=== PATIENT | male | born 1980 | race American Indian/Alaskan Native ===

== ENCOUNTER 2017-11-05 02:12 | Inpatient (IN) | payer SELFPAY ==
[2017-11-05] MEDS ORDERED: Sodium Chloride 0.9% 1,000 ML IV ONE (02:17)
[2017-11-05] MEDS ORDERED: Ondansetron 4 MG/2 ML SDV IVPUSH ONE (02:17)
[2017-11-05] MEDS ORDERED: Ketorolac 30 MG/ML SDV IVPUSH ONE (02:17)
--- NOTE | 2017-11-05 02:18 | EDM.PDOC ---
<Master Mcintosh - Last Filed: 11/05/17 06:48> ED HPI GENERAL MEDICAL PROBLEM - General Stated Complaint: STOMACH PAIN Time Seen by Provider: 11/05/17 02:17 Source of Information: Reports: Patient - History of Present Illness INITIAL COMMENTS - FREE TEXT/NARRATIVE: HISTORY AND PHYSICAL: History of present illness: [Patient presents with 5 out of 10 abdominal pain nonradiating left and low central below the umbilicus no fever nausea vomiting chills sweats said decreased bowel movements and discomfort over the last week he did have a bowel movement on arrival to the emergency room Denies chronic illness or disease no daily medications ] Review of systems: As per history of present illness and below otherwise all systems reviewed and negative. Past medical history: As per history of present illness and as reviewed below otherwise noncontributory. Surgical history: As per history of present illness and as reviewed below otherwise noncontributory. Social history: No reported history of drug or alcohol abuse. Family history: As per history of present illness and as reviewed below otherwise noncontributory. Physical exam: HEENT: Atraumatic, normocephalic, pupils reactive, negative for conjunctival pallor or scleral icterus, mucous membranes moist, throat clear, neck supple, nontender, trachea midline. Lungs: Clear to auscultation, breath sounds equal bilaterally, chest nontender. Heart: S1S2, regular, negative for clicks, rubs, or JVD. Abdomen: Soft, protuberant abdomen firm tender with guarding on the left lower quadrant as well as below the umbilicus mild tenderness right lower quadrant on deep palpation no guarding or rebound. Negative for masses or hepatosplenomegaly. Negative for costovertebral tenderness. Pelvis: Stable nontender. Genitourinary: Deferred. Rectal: Deferred. Extremities: Atraumatic, negative for cords or calf pain. Neurovascular unremarkable. Neuro: Awake, alert, oriented. Cranial nerves II through XII unremarkable. Cerebellum unremarkable. Motor and sensory unremarkable throughout. Exam nonfocal. Diagnostics: [CBC CMP UA lipase urine culture CT abdomen pelvis without contrast ] Therapeutics: [1 L normal saline bolus Zofran 8 mg IV Toradol 30 mg IV Reglan 10 mg IV Cipro 400 mg IV Flagyl 500 mg IV ]Dr. Murray consulted, I have spoken with hospitalist senior financial consultant whe are tentatively expecting some possible discharges which would open availability for the patient Patient will have to be signed out for final disposition pending surgical evaluation and bed status Impression: [ abdominal pain Diverticulitis Likely. Diverticular abscess 2 x 1 cm ] Definitive disposition and diagnosis as appropriate pending reevaluation and review of above. Lower abdomen Pain Score (Numeric/FACES): 7 - Related Data Allergies Allergy/AdvReac Type Severity Reaction Status Date / Time No Known Allergies Allergy Verified 11/05/17 02:25 Home Meds: Home Meds . [No Known Home Meds] 11/05/17 [History] Course - Vital Signs Last Recorded V/S: Last Vital Signs Temp 97.5 F 11/05/17 09:48 Pulse 78 11/05/17 09:48 Resp 16 11/05/17 09:48 BP 114/68 11/05/17 09:48 Pulse Ox 96 11/05/17 09:48 - Orders/Labs/Meds Orders: Active Orders 24 hr Category Date Time Status Admission Status [Patient Status] [ADT] Stat ADT 11/05/17 10:14 Active Notify Provider Consults [RC] ASDIRECTED Care 11/05/17 06:43 Active Consult to Physician [CONS] Stat Cons 11/05/17 06:41 Active Abdomen 2V AP Flat Upright [CR] Stat Exams 11/05/17 03:31 Stop Req Abdomen Pelvis wo Cont [CT] Stat Exams 11/05/17 03:34 Taken CULTURE URINE [RM] Stat Lab 11/05/17 02:20 Received UA W/MICROSCOPIC [URIN] Stat Lab 11/05/17 02:20 Ordered Sodium Chloride 0.9% [Normal Saline] 1,000 ml Med 11/05/17 04:45 Active IV STAT Medication Orders Sodium Chloride (Normal Saline) 1,000 mls @ 125 mls/hr IV STAT JENNIFER Last Admin: 11/05/17 05:18 Dose: 125 mls/hr Labs: Laboratory Tests 11/05/17 11/05/17 11/05/17 Range/Units 02:20 02:50 02:50 WBC 8.28 (4.0-11.0) K/uL RBC 5.18 (4.50-5.90) M/uL Hgb 14.7 (13.0-17.0) g/dL Hct 42.4 (38.0-50.0) % MCV 81.9 (80.0-98.0) fL MCH 28.4 (27.0-32.0) pg MCHC 34.7 (31.0-37.0) g/dL RDW Std Deviation 38.9 (28.0-62.0) fl RDW Coeff of Heavenly 13 (11.0-15.0) % Plt Count 286 (150-400) K/uL MPV 9.30 (7.40-12.00) fL Neut % (Auto) 66.7 (48.0-80.0) % Lymph % (Auto) 21.6 (16.0-40.0) % [place] % (Auto) 8.6 (0.0-15.0) % Eos % (Auto) 2.7 (0.0-7.0) % Baso % (Auto) 0.4 (0.0-1.5) % Neut # (Auto) 5.5 (1.4-5.7) K/uL Lymph # (Auto) 1.8 (0.6-2.4) K/uL [place] # (Auto) 0.7 (0.0-0.8) K/uL Eos # (Auto) 0.2 (0.0-0.7) K/uL Baso # (Auto) 0.0 (0.0-0.1) K/uL Nucleated RBC % 0.0 /100WBC Nucleated RBCs # 0 K/uL Sodium 141 (136-148) mmol/L Potassium 3.7 (3.5-5.1) mmol/L Chloride 105 (98-107) mmol/L Carbon Dioxide 28.0 (21.0-32.0) mmol/L BUN 14 (7.0-18.0) mg/dL Creatinine 0.9 (0.8-1.3) mg/dL Est Cr Clr Drug Dosing 95.05 mL/min Estimated GFR (MDRD) > 60.0 ml/min Glucose 105 (74-106) mg/dL Calcium 8.8 (8.5-10.1) mg/dL Total Bilirubin 0.3 (0.2-1.0) mg/dL AST 20 (15-37) IU/L ALT 47 (14-63) IU/L Alkaline Phosphatase 124 H (46-116) U/L Total Protein 7.7 (6.4-8.2) g/dL Albumin 3.3 L (3.4-5.0) g/dL Globulin 4.4 H (2.0-3.5) g/dL Albumin/Globulin Ratio 0.8 L (1.3-2.8) Lipase 124 (73-393) U/L Urine Color YELLOW Urine Appearance SLT CLOUDY Urine pH 7.5 (5.0-8.0) Ur Specific [place] 1.020 (1.001-1.035) Urine Protein NEGATIVE (NEGATIVE) mg/dL Urine Glucose (UA) NEGATIVE (NEGATIVE) mg/dL Urine Ketones NEGATIVE (NEGATIVE) mg/dL Urine Occult Blood SMALL H (NEGATIVE) Urine Nitrite NEGATIVE (NEGATIVE) Urine Bilirubin NEGATIVE (NEGATIVE) Urine Urobilinogen 0.2 (<2.0) EU/dL Ur Leukocyte Esterase NEGATIVE (NEGATIVE) Urine RBC 0-2 (0-2/HPF) Urine WBC 0-1 (0-5/HPF) Ur Epithelial Cells RARE (NONE-FEW) Amorphous Sediment MANY (NEGATIVE) Urine Bacteria FEW (NEGATIVE) Meds: Medications Generic Name Dose Route Start Last Admin Trade Name [place] PRN Reason Stop Dose Admin Sodium Chloride 1,000 mls @ 125 mls/hr 11/05/17 04:45 11/05/17 05:18 Normal Saline IV 125 mls/hr STAT JENNIFER Administration Discontinued Medications Generic Name Dose Route Start Last Admin Trade Name Charlotte PRN Reason Stop Dose Admin Sodium Chloride 1,000 mls @ 999 mls/hr 11/05/17 02:17 11/05/17 02:55 Normal Saline IV 11/05/17 03:17 999 mls/hr STAT ONE Administration Metronidazole 500 mg/ Premix 100 mls @ 100 mls/hr 11/05/17 04:11 11/05/17 04: 14 IV 11/05/17 05:10 100 mls/hr ONETIME ONE Administration Ciprofloxacin/Dextrose 400 mg/ 200 mls @ 200 mls/hr 11/05/17 04:58 11/05/17 05:18 Premix IV 11/05/17 05:57 200 mls/hr NOW STA Administration Ketorolac Tromethamine 30 mg 11/05/17 02:17 11/05/17 02:56 Toradol IVPUSH 05/19/18 02:18 30 mg ONETIME ONE Administration Metoclopramide HCl 10 mg 11/05/17 04:02 11/05/17 04:09 Reglan IV 11/05/17 04:03 10 mg ONETIME ONE Administration Ondansetron HCl 8 mg 11/05/17 02:17 11/05/17 02:56 Zofran IVPUSH 11/05/17 02:18 8 mg ONETIME ONE Administration Sumatriptan Succinate 50 mg 11/05/17 09:42 11/05/17 09:55 Imitrex PO 11/05/17 09:43 50 mg ONETIME ONE Administration Departure - Departure Disposition: Admitted As Inpatient 66 Clinical Impression: Diverticulitis - Discharge Information Referrals: PCP,None [Primary Care Provider] - - My Orders Last 24 Hours: My Active Orders 11/05/17 10:14 Admission Status [Patient Status] [ADT] Stat - Assessment/Plan Last 24 Hours: My Active Orders 11/05/17 10:14 Admission Status [Patient Status] [ADT] Stat <Travis Lucas - Last Filed: 11/05/17 10:19> ED HPI GENERAL MEDICAL PROBLEM - General Source of Information: Reports: Patient - History of Present Illness INITIAL COMMENTS - FREE TEXT/NARRATIVE: Dr. Lucas taking over care for patient at 07 100. I have been advised of patient's pertinent findings in history as well as labs and imaging from Dr. White. I personally examined patient and reviewed all labs, imaging, and history and him assuming care. CT abd/pelvis did show mild to moderate wall thickening present in the sigmoid with surrounding inflammatory and severe diverticulosis most likely due to acute diverticulitis. In addition there was a fluid density structure seen along the inferior margin of the inflamed segment of the cystic colon measuring 2 x 1 cm, most likely due to a small rahel-diverticular abscess. 07 30-patient seen by Dr. Mruray, surgery who physical exam patient and reviewed CT findings. Abscess mentioned on CT is very small and most likely not surgical. Patient could be admitted for IV antibiotics and he will consult. Possible consult with radiology if needed in the future for drain placement. 0943- Patient complaining of migraine given 50 mg Sumatriptan po x1 1015- Dr. Mantilla, hospitalist, consulted on patient for diverticulitis. She is aware patient and accepts patient as inpatient to the hospital for further treatment. ED ROS ENT - Review of Systems Review Of Systems: See Below ED EXAM, ENT - Physical Exam Exam: See Below Departure - Departure Time of Disposition: 10:18 Condition: Good - My Orders Last 24 Hours: My Active Orders 11/05/17 10:14 Admission Status [Patient Status] [ADT] Stat - Assessment/Plan Last 24 Hours: My Active Orders 11/05/17 10:14 Admission Status [Patient Status] [ADT] Stat
[2017-11-05 03:18] LABS: CHLORIDE,CL 105 mmol/L (98-107); SODIUM,NA 141 mmol/L (136-148)
[2017-11-05] MEDS ORDERED: Metoclopramide 10 MG/2 ML SDV IV ONE (04:02)
[2017-11-05] MEDS ORDERED: metroNIDAZOLE/Normal Saline 500 MG in Premix Bag 1 BAG IV ONE (04:11)
[2017-11-05] MEDS ORDERED: Sodium Chloride 0.9% 1,000 ML IV SCH (04:45)
[2017-11-05] MEDS ORDERED: Ciprofloxacin in D5W 400 MG in Premix Bag 1 BAG IV STA ×2 (04:58)
--- NOTE | 2017-11-05 08:13 | PCM.CONS ---
H&P History of Present Illness - General Date of Service: 11/05/17 Admit Problem/Dx: Acute diverticulitis with small pericolonic fluid collection Source of Information: Patient History Limitations: Reports: No Limitations - History of Present Illness Initial Comments - Free Text/Narative: Patient is a 37-year-old gentleman who presented the emergency room earlier this morning complaining of abdominal pain. He relates the pain started last week and was moderately significant during the week. It got worse this morning , so he presented to the emergency room. CT scan revealed diverticulitis with a 1 x 2 cm pericolonic fluid collection. Patient had previously not carry a diagnosis of diverticulosis. He denies any fever or chills. No nausea or vomiting. Has had some trouble with constipation. This past week. Symptom Onset Date: 10/30/17 Duration of Symptoms: Reports: Getting Worse, Heavy Location: Reports: Abdomen Quality: Reports: Ache, Burning, Pressure Severity: Moderate Improves with: Reports: Rest Worsens with: Reports: Movement Context: Reports: Sick Contact Associated Symptoms: Reports: No Other Symptoms Lower abdomen Pain Score (Numeric/FACES): 7 - Related Data Allergies/Adverse Reactions: Allergies Allergy/AdvReac Type Severity Reaction Status Date / Time No Known Allergies Allergy Verified 11/05/17 02:25 Home Medications: Home Meds . [No Known Home Meds] 11/05/17 [History] Past Medical History - Past Health History Medical/Surgical History: Denies Medical/Surgical History - Infectious Disease History Infectious Disease History: Reports: Chicken Pox - Past Surgical History GI Surgical History: Reports: Cholecystectomy Musculoskeletal Surgical History: Reports: Other (See Below) Other Musculoskeletal Surgeries/Procedures:: thumb surgery Social & Family History - Tobacco Use Smoking Status *Q: Former Smoker Used Tobacco, but Quit: Yes Month/Year Tobacco Last Used: 2007 - Caffeine Use Caffeine Use: Reports: Coffee - Recreational Drug Use Recreational Drug Use: Yes Drug Use in Last 12 Months: No H&P Review of Systems - Review of Systems: Review Of Systems: See Below General: Reports: Fever. Denies: Chills, Malaise, Weakness HEENT: Reports: No Symptoms Pulmonary: Denies: Shortness of Breath, Wheezing Cardiovascular: Denies: Chest Pain, Palpitations Gastrointestinal: Reports: Abdominal Pain, Constipation, Distension, Flatus. Denies: Anorexia, Black Stool, Bloody Stool, Diarrhea, Hematochezia, Melena, Nausea, Stool Incontinence, Vomiting Genitourinary: Denies: Dysuria, Frequency, Burning Musculoskeletal: Reports: No Symptoms Skin: Denies: Cyanosis, Jaundice, Mottled, Pallor Psychiatric: Denies: Confusion, Depression Neurological: Reports: No Symptoms Hematologic/Lymphatic: Reports: No Symptoms Immunologic: Reports: No Symptoms Exam - Exam Exam: See Below - Vital Signs Vital Signs: Last Vital Signs Temp 97.8 F 11/05/17 06:37 Pulse 71 11/05/17 06:37 Resp 16 11/05/17 06:37 BP 102/57 L 11/05/17 06:37 Pulse Ox 98 11/05/17 06:37 Weight: 131 lb 13.383 oz - Exam General: Alert, Oriented, Cooperative, Mild Distress HEENT: Conjunctiva Clear, EACs Clear, Pupils Equal, Pupils Reactive. No: Scleral Icterus Neck: Supple, Trachea Midline Lungs: Clear to Auscultation, Normal Respiratory Effort Cardiovascular: Regular Rate, Regular Rhythm GI/Abdominal Exam: Normal Bowel Sounds, Soft, Non-Tender, No Organomegaly, Distended (Mild). No: Guarding, Rigid, Rebound (Male) Exam: No Hernia Rectal (Males) Exam: Deferred Back Exam: Normal Inspection Extremities: Normal Inspection, Normal Range of Motion, Normal Capillary Refill Peripheral Pulses: 4+: Posterior Tibial (L), Posterior Tibial (R), Dorsalis Pedis (L), Dorsalis Pedis (R) Skin: Warm, Dry, Intact Neurological: Cranial Nerves Intact, Reflexes Equal Bilateral Neuro Extensive - Mental Status: Alert, Oriented x3, Normal Mood/Affect, Normal Cognition Psychiatric: Alert, Normal Affect, Normal Mood - Patient Data Lab Results Last 24 hrs: Laboratory Results - last 24 hr 11/05/17 11/05/17 11/05/17 Range/Units 02:20 02:50 02:50 WBC 8.28 (4.0-11.0) K/uL RBC 5.18 (4.50-5.90) M/uL Hgb 14.7 (13.0-17.0) g/dL Hct 42.4 (38.0-50.0) % MCV 81.9 (80.0-98.0) fL MCH 28.4 (27.0-32.0) pg MCHC 34.7 (31.0-37.0) g/dL RDW Std Deviation 38.9 (28.0-62.0) fl RDW Coeff of Heavenly 13 (11.0-15.0) % Plt Count 286 (150-400) K/uL MPV 9.30 (7.40-12.00) fL Neut % (Auto) 66.7 (48.0-80.0) % Lymph % (Auto) 21.6 (16.0-40.0) % [place] % (Auto) 8.6 (0.0-15.0) % Eos % (Auto) 2.7 (0.0-7.0) % Baso % (Auto) 0.4 (0.0-1.5) % Neut # (Auto) 5.5 (1.4-5.7) K/uL Lymph # (Auto) 1.8 (0.6-2.4) K/uL [place] # (Auto) 0.7 (0.0-0.8) K/uL Eos # (Auto) 0.2 (0.0-0.7) K/uL Baso # (Auto) 0.0 (0.0-0.1) K/uL Nucleated RBC % 0.0 /100WBC Nucleated RBCs # 0 K/uL Sodium 141 (136-148) mmol/L Potassium 3.7 (3.5-5.1) mmol/L Chloride 105 (98-107) mmol/L Carbon Dioxide 28.0 (21.0-32.0) mmol/L BUN 14 (7.0-18.0) mg/dL Creatinine 0.9 (0.8-1.3) mg/dL Est Cr Clr Drug Dosing 95.05 mL/min Estimated GFR (MDRD) > 60.0 ml/min Glucose 105 (74-106) mg/dL Calcium 8.8 (8.5-10.1) mg/dL Total Bilirubin 0.3 (0.2-1.0) mg/dL AST 20 (15-37) IU/L ALT 47 (14-63) IU/L Alkaline Phosphatase 124 H (46-116) U/L Total Protein 7.7 (6.4-8.2) g/dL Albumin 3.3 L (3.4-5.0) g/dL Globulin 4.4 H (2.0-3.5) g/dL Albumin/Globulin Ratio 0.8 L (1.3-2.8) Lipase 124 (73-393) U/L Urine Color YELLOW Urine Appearance SLT CLOUDY Urine pH 7.5 (5.0-8.0) Ur Specific [place] 1.020 (1.001-1.035) Urine Protein NEGATIVE (NEGATIVE) mg/dL Urine Glucose (UA) NEGATIVE (NEGATIVE) mg/dL Urine Ketones NEGATIVE (NEGATIVE) mg/dL Urine Occult Blood SMALL H (NEGATIVE) Urine Nitrite NEGATIVE (NEGATIVE) Urine Bilirubin NEGATIVE (NEGATIVE) Urine Urobilinogen 0.2 (<2.0) EU/dL Ur Leukocyte Esterase NEGATIVE (NEGATIVE) Urine RBC 0-2 (0-2/HPF) Urine WBC 0-1 (0-5/HPF) Ur Epithelial Cells RARE (NONE-FEW) Amorphous Sediment MANY (NEGATIVE) Urine Bacteria FEW (NEGATIVE) Result Diagrams: 11/05/17 02:50 11/05/17 02:50 Imaging Impressions Last 24 hrs: CT scan is read as showing a 1 x 2 cm pericolonic fluid collection in the area of diverticulitis. No large abscess was noted. No pneumoperitoneum. Consult PN Assessment/Plan (1) Diverticulitis large intestine SNOMED Code(s): 7157709 Code(s): K57.32 - DVTRCLI OF LG INT W/O PERFORATION OR ABSCESS W/O BLEEDING Priority: High Current Visit: Yes Qualifiers: Diverticulitis bleeding: without bleeding Problem List Initiated/Reviewed/Updated: Yes Plan: RECOMMENDATIONS: I think the patient would benefit from 2-3 days of parenteral antibiotic therapy followed by 7-10 day course of oral antibiotics on an outpatient basis. Would allow a clear liquid diet as he has no leukocytosis. I have also recommended to him that he have a colonoscopy later this year. I will continue to follow him.
[2017-11-05] MEDS ORDERED: SUMAtriptan 50 MG Tab PO ONE (09:42)
[2017-11-05] MEDS ORDERED: Morphine 10 MG/ML Syringe IVPUSH PRN (12:20)
[2017-11-05] MEDS ORDERED: Sodium Chloride 0.9% 2.5 ML Syringe FLUSH PRN (12:20)
[2017-11-05] MEDS ORDERED: Ondansetron 4 MG/2 ML SDV IVPUSH PRN (12:20)
[2017-11-05] MEDS ORDERED: Sodium Chloride 0.9% 10 ML Syringe FLUSH PRN (12:20)
[2017-11-05] MEDS: Enoxaparin 40 MG/0.4 ML Syringe SUBCUT SCH (13:16)
[2017-11-05] MEDS ORDERED: Acetaminophen/oxyCODONE 325-5 MG Tab PO PRN (13:54)
[2017-11-05] MEDS ORDERED: LORazepam 2 MG/ML SDV IVPUSH ONE (13:57)
[2017-11-05] MEDS ORDERED: Metoclopramide 10 MG/2 ML SDV IVPUSH PRN (13:58)
[2017-11-05] MEDS ORDERED: HYDROmorphone 2 MG/ML SDV IVPUSH ONE (14:11)
[2017-11-05] MEDS ORDERED: Aspirin 325 MG Tab PO ONE (14:12)
[2017-11-05] MEDS ORDERED: Acetaminophen 325 MG Tab PO ONE (14:24)
[2017-11-05] MEDS ORDERED: CAFFEINE CITRATE 20 MG/ML PO ONE (14:30)
[2017-11-05] MEDS ORDERED: CAFFEINE CITRATE 20 MG/ML ONE (14:30)
[2017-11-05] MEDS ORDERED: CAFFEINE CITRATE 20 MG/ML IV ONE (14:30)
[2017-11-05] MEDS: Lactated Ringers 1,000 ML IV SCH (15:37)
--- NOTE | 2017-11-05 15:49 | PCM.HP ---
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 He states that this abdominal pain started about 1 week ago and he had subjective feeling of fever and broke up in sweats 1 week ago. The pain improved in the subsequent days but it came back at the end of the week and last night woke him up from sleep and he drove to [place]. Patient says that 1 y ago he had pain in the LLQ again and it was short , for about 1 day and subsided on its own. Has an uncle and a aunt that of colon cancer in the 60' and 50', respective.Currently he has severe headache frontal , he states it is the worst headache of his life. He suffers occasionally of migraine headache and treats them with Excedrin Onset of Symptoms: Reports: Today Location: Reports: Abdomen Quality: Reports: Sharp Lower abdomen Pain Score (Numeric/FACES): 7 Headache Pain Score (Numeric/FACES): 8 - Related Data Allergies/Adverse Reactions: Allergies Allergy/AdvReac Type Severity Reaction Status Date / Time No Known Allergies Allergy Verified 11/05/17 02:25 Home Medications: Home Meds . [No Known Home Meds] 11/05/17 [History] Past Medical History - Past Health History Medical/Surgical History: Denies Medical/Surgical History - Infectious Disease History Infectious Disease History: Reports: Chicken Pox - Past Surgical History GI Surgical History: Reports: Cholecystectomy Musculoskeletal Surgical History: Reports: Other (See Below) Other Musculoskeletal Surgeries/Procedures:: thumb surgery Social & Family History - Tobacco Use Smoking Status *Q: Former Smoker Used Tobacco, but Quit: Yes Month/Year Tobacco Last Used: 2007 - Caffeine Use Caffeine Use: Reports: Coffee - Recreational Drug Use Recreational Drug Use: Yes Drug Use in Last 12 Months: No H&P Review of Systems - Review of Systems: Review Of Systems: See Below General: Reports: No Symptoms HEENT: Reports: No Symptoms Pulmonary: Reports: No Symptoms Cardiovascular: Reports: No Symptoms Gastrointestinal: Reports: Abdominal Pain (LLQ) Genitourinary: Reports: No Symptoms Musculoskeletal: Reports: No Symptoms Skin: Reports: No Symptoms Psychiatric: Reports: No Symptoms Neurological: Reports: Headache Hematologic/Lymphatic: Reports: No Symptoms Immunologic: Reports: No Symptoms Exam - Exam Exam: See Below - Vital Signs Vital Signs: Last Vital Signs Temp 97.5 F 11/05/17 09:48 Pulse 78 11/05/17 09:48 Resp 16 11/05/17 09:48 BP 114/68 11/05/17 09:48 Pulse Ox 96 11/05/17 09:48 Weight: 131 lb 13.383 oz - Exam Quality Assessment: Supplemental Oxygen General: Alert, Oriented HEENT: Conjunctiva Clear, EACs Clear, EOMI, Hearing Intact Neck: Supple, Trachea Midline Lungs: Clear to Auscultation, Normal Respiratory Effort Cardiovascular: Regular Rate, Regular Rhythm, Normal S1, Normal S2 GI/Abdominal Exam: Normal Bowel Sounds, Soft, Tender (LLQ). No: Guarding, Rebound Back Exam: Normal Inspection Extremities: Normal Inspection Skin: Warm, Dry Neurological: Normal Speech Neuro Extensive - Mental Status: Alert, Oriented x3, Normal Mood/Affect Neuro Extensive - Motor, Sensory, Reflexes: CN II-XII Intact Psychiatric: Alert, Normal Affect - Patient Data Lab Results Last 24 hrs: Laboratory Results - last 24 hr 11/05/17 11/05/17 11/05/17 Range/Units 02:20 02:50 02:50 WBC 8.28 (4.0-11.0) K/uL RBC 5.18 (4.50-5.90) M/uL Hgb 14.7 (13.0-17.0) g/dL Hct 42.4 (38.0-50.0) % MCV 81.9 (80.0-98.0) fL MCH 28.4 (27.0-32.0) pg MCHC 34.7 (31.0-37.0) g/dL RDW Std Deviation 38.9 (28.0-62.0) fl RDW Coeff of Heavenly 13 (11.0-15.0) % Plt Count 286 (150-400) K/uL MPV 9.30 (7.40-12.00) fL Neut % (Auto) 66.7 (48.0-80.0) % Lymph % (Auto) 21.6 (16.0-40.0) % [place] % (Auto) 8.6 (0.0-15.0) % Eos % (Auto) 2.7 (0.0-7.0) % Baso % (Auto) 0.4 (0.0-1.5) % Neut # (Auto) 5.5 (1.4-5.7) K/uL Lymph # (Auto) 1.8 (0.6-2.4) K/uL [place] # (Auto) 0.7 (0.0-0.8) K/uL Eos # (Auto) 0.2 (0.0-0.7) K/uL Baso # (Auto) 0.0 (0.0-0.1) K/uL Nucleated RBC % 0.0 /100WBC Nucleated RBCs # 0 K/uL Sodium 141 (136-148) mmol/L Potassium 3.7 (3.5-5.1) mmol/L Chloride 105 (98-107) mmol/L Carbon Dioxide 28.0 (21.0-32.0) mmol/L BUN 14 (7.0-18.0) mg/dL Creatinine 0.9 (0.8-1.3) mg/dL Est Cr Clr Drug Dosing 95.05 mL/min Estimated GFR (MDRD) > 60.0 ml/min Glucose 105 (74-106) mg/dL Calcium 8.8 (8.5-10.1) mg/dL Total Bilirubin 0.3 (0.2-1.0) mg/dL AST 20 (15-37) IU/L ALT 47 (14-63) IU/L Alkaline Phosphatase 124 H (46-116) U/L Total Protein 7.7 (6.4-8.2) g/dL Albumin 3.3 L (3.4-5.0) g/dL Globulin 4.4 H (2.0-3.5) g/dL Albumin/Globulin Ratio 0.8 L (1.3-2.8) Lipase 124 (73-393) U/L Urine Color YELLOW Urine Appearance SLT CLOUDY Urine pH 7.5 (5.0-8.0) Ur Specific [employer] [place] 1.020 (1.001-1.035) Urine Protein NEGATIVE (NEGATIVE) mg/dL Urine Glucose (UA) NEGATIVE (NEGATIVE) mg/dL Urine Ketones NEGATIVE (NEGATIVE) mg/dL Urine Occult Blood SMALL H (NEGATIVE) Urine Nitrite NEGATIVE (NEGATIVE) Urine Bilirubin NEGATIVE (NEGATIVE) Urine Urobilinogen 0.2 (<2.0) EU/dL Ur Leukocyte Esterase NEGATIVE (NEGATIVE) Urine RBC 0-2 (0-2/HPF) Urine WBC 0-1 (0-5/HPF) Ur Epithelial Cells RARE (NONE-FEW) Amorphous Sediment MANY (NEGATIVE) Urine Bacteria FEW (NEGATIVE) Result Diagrams: 11/05/17 02:50 11/05/17 02:50 - Problem List (1) Diverticulitis SNOMED Code(s): 067891555 ICD Code: K57.92 - DVTRCLI OF INTEST, PART UNSP, W/O PERF OR ABSCESS W/O BLEED Status: Acute Current Visit: Yes (2) Migraine headache without aura SNOMED Code(s): 59233764 ICD Code: G43.009 - MIGRAINE W/O AURA, NOT INTRACTABLE, W/O STATUS MIGRAINOSUS Status: Acute Current Visit: Yes Qualifiers: Intractability: not intractable Problem List Initiated/Reviewed/Updated: Yes Orders Last 24hrs: Active Orders 24 hr Category Date Time Status Admission Status [Patient Status] [ADT] Stat ADT 11/05/17 10:14 Active Notify Provider Consults [RC] ASDIRECTED Care 11/05/17 06:43 Active Oxygen Therapy [RC] PRN Care 11/05/17 12:20 Active Pulse Oximetry [RC] PRN Care 11/05/17 12:21 Active Up ad Kady [RC] ASDIRECTED Care 11/05/17 12:20 Active VTE/DVT Education [RC] PER UNIT ROUTINE Care 11/05/17 12:20 Active Vital Signs [RC] Q4H Care 11/05/17 12:20 Active Consult to Physician [CONS] Stat Cons 11/05/17 06:41 Active Clear Liquid Diet [DIET] Diet 11/05/17 Dinner Active Abdomen Pelvis wo Cont [CT] Stat Exams 11/05/17 03:34 Taken CBC WITH AUTO DIFF [HEME] AM Lab 11/06/17 05:11 Ordered CBC WITH AUTO DIFF [HEME] AM Lab 11/07/17 05:11 Ordered CBC WITH AUTO DIFF [HEME] AM Lab 11/08/17 05:11 Ordered CBC WITH AUTO DIFF [HEME] AM Lab 11/09/17 05:11 Ordered CBC WITH AUTO DIFF [HEME] AM Lab 11/10/17 05:11 Ordered COMPREHENSIVE METABOLIC PN,CMP [CHEM] AM Lab 11/06/17 05:11 Ordered COMPREHENSIVE METABOLIC PN,CMP [CHEM] AM Lab 11/07/17 05:11 Ordered COMPREHENSIVE METABOLIC PN,CMP [CHEM] AM Lab 11/08/17 05:11 Ordered COMPREHENSIVE METABOLIC PN,CMP [CHEM] AM Lab 11/09/17 05:11 Ordered COMPREHENSIVE METABOLIC PN,CMP [CHEM] AM Lab 11/10/17 05:11 Ordered CULTURE URINE [RM] Stat Lab 11/05/17 02:20 Received MAGNESIUM [CHEM] AM Lab 11/06/17 05:11 Ordered MAGNESIUM [CHEM] AM Lab 11/07/17 05:11 Ordered MAGNESIUM [CHEM] AM Lab 11/08/17 05:11 Ordered MAGNESIUM [CHEM] AM Lab 11/09/17 05:11 Ordered PHOSPHORUS [CHEM] AM Lab 11/06/17 05:11 Ordered PHOSPHORUS [CHEM] AM Lab 11/07/17 05:11 Ordered PHOSPHORUS [CHEM] AM Lab 11/08/17 05:11 Ordered PHOSPHORUS [CHEM] AM Lab 11/09/17 05:11 Ordered UA W/MICROSCOPIC [URIN] Stat Lab 11/05/17 02:20 Ordered Acetaminophen/oxyCODONE [Percocet 325-5 MG] Med 11/05/17 13:54 Active 1 tab PO Q6H PRN Ciprofloxacin in D5W [Cipro in D5W 400 MG/200 ML] 400 Med 11/05/17 21:00 Active mg Premix Bag 1 bag IV Q12H Enoxaparin [Lovenox] Med 11/05/17 12:30 Active 40 mg SUBCUT Q24H Lactated Ringers [Ringers, Lactated] 1,000 ml Med 11/05/17 12:30 Active IV ASDIRECTED Metoclopramide [Reglan] Med 11/05/17 13:58 Active 10 mg IVPUSH Q4H PRN Morphine Med 11/05/17 12:20 Active 2 mg IVPUSH Q2H PRN Ondansetron [Zofran] Med 11/05/17 12:20 Active 4 mg IVPUSH Q4H PRN Sodium Chloride 0.9% [Normal Saline] 1,000 ml Med 11/05/17 04:45 Active IV STAT Sodium Chloride 0.9% [Saline Flush] Med 11/05/17 12:20 Active 10 ml FLUSH ASDIRECTED PRN Sodium Chloride 0.9% [Saline Flush] Med 11/05/17 12:20 Active 2.5 ml FLUSH ASDIRECTED PRN metroNIDAZOLE/Normal Saline [Flagyl 500 MG in NS 100 ML Med 11/05/17 18:00 Active ] 500 mg Premix Bag 1 bag IV QID Peripheral IV Insertion Adult [OM.PC] Routine Oth 11/05/17 12:20 Ordered Saline Lock Insert [OM.PC] Routine Oth 11/05/17 12:20 Ordered Sequential Compression Device [OM.PC] Per Unit Routine Oth 11/05/17 12:21 Ordered Resuscitation Status Routine Resus Stat 11/05/17 12:20 Ordered Medication Orders Enoxaparin Sodium (Lovenox) 40 mg SUBCUT Q24H [facility] Last Admin: 11/05/17 13:16 Dose: 40 mg Sodium Chloride (Normal Saline) 1,000 mls @ 125 mls/hr IV STAT [facility] Last Admin: 11/05/17 05:18 Dose: 125 mls/hr Lactated Ringer's (Ringers, Lactated) 1,000 mls @ 125 mls/hr IV ASDIRECTED [facility] Metronidazole 500 mg/ Premix 100 mls @ 100 mls/hr IV QID [facility] Ciprofloxacin/Dextrose 400 mg/ (Premix) 200 mls @ 200 mls/hr IV Q12H [facility] Metoclopramide HCl (Reglan) 10 mg IVPUSH Q4H PRN PRN Reason: n and vomiting Morphine Sulfate (Morphine) 2 mg IVPUSH Q2H PRN PRN Reason: Pain (severe 7-10) Stop: 11/06/17 12:22 Ondansetron HCl (Zofran) 4 mg IVPUSH Q4H PRN PRN Reason: Nausea Oxycodone/Acetaminophen (Percocet 325-5 Mg) 1 tab PO Q6H PRN PRN Reason: Pain Sodium Chloride (Saline Flush) 10 ml FLUSH ASDIRECTED PRN PRN Reason: Keep Vein Open Sodium Chloride (Saline Flush) 2.5 ml FLUSH ASDIRECTED PRN PRN Reason: Keep Vein Open Assessment/Plan Comment:: ct scan of the abdomen showed colon diverticulitis with small pericolonic fluid collection. Assessment and plan 1) diverticulitis with small pericolonic fluid collection- will admit patient to med surge and will continue patient with ciprofloxacin 400 mg iv q12 h and metronidazole 500 mg iv q 8h, f/up blood culture. Surgery consult was called in ER and recommended medical management . 2)Migraine headache - will give patient tylenol 650 mg po , aspirin 325 mg po one dose and caffeine 300 mg, as the pharmacy did not have exedrin. will reevaluate. DVT prof: heparing sq Gi prof - protonix iv
[2017-11-05] MEDS: metroNIDAZOLE/Normal Saline 500 MG in Premix Bag 1 BAG IV SCH (17:36)
[2017-11-05] MEDS: Ciprofloxacin in D5W 400 MG in Premix Bag 1 BAG IV SCH ×2 (22:05)
[2017-11-06] MEDS: metroNIDAZOLE/Normal Saline 500 MG in Premix Bag 1 BAG IV SCH ×3 (00:03→12:32)
[2017-11-06] MEDS: Lactated Ringers 1,000 ML IV SCH (02:15)
[2017-11-06] MEDS ORDERED: Aspirin 325 MG Tab PO ONE (05:07)
[2017-11-06] MEDS ORDERED: CAFFEINE CITRATE 20 MG/ML PO ONE (05:09)
[2017-11-06] MEDS ORDERED: Acetaminophen 325 MG Tab PO ONE (05:10)
[2017-11-06 06:46] LABS: CHLORIDE,CL 110 mmol/L (98-107); SODIUM,NA 143 mmol/L (136-148)
--- NOTE | 2017-11-06 08:50 | PCM.CONSN ---
- General Info Date of Service: 11/06/17 Admission Dx/Problem (Free Text): Acute diverticulitis with small pericolonic fluid collection Functional Status: Reports: Pain Controlled, Tolerating Diet - Review of Systems General: Denies: Fever, Weakness, Fatigue HEENT: Reports: No Symptoms Pulmonary: Reports: No Symptoms Cardiovascular: Reports: No Symptoms Gastrointestinal: Reports: [place]. Denies: Abdominal Pain, Constipation, Decreased Appetite, Diarrhea, Nausea, Vomiting Genitourinary: Reports: No Symptoms Musculoskeletal: Reports: No Symptoms Skin: Reports: No Symptoms Neurological: Reports: No Symptoms Psychiatric: Reports: No Symptoms - Patient Data Vitals - Most Recent: Last Vital Signs Temp 99 F 11/06/17 04:00 Pulse 57 L 11/06/17 04:00 Resp 18 11/06/17 04:00 BP 101/59 L 11/06/17 04:00 Pulse Ox 97 11/06/17 04:00 Weight - Most Recent: 131 lb 13.383 oz I&O - Last 24 Hours: Intake & Output 11/05/17 11/06/17 11/06/17 19:59 03:59 11:59 Intake Total 999 1000 Output Total 550 Balance 999 450 Lab Results Last 24 Hours: Laboratory Results - last 24 hr 11/06/17 11/06/17 Range/Units 05:56 05:56 WBC 6.23 (4.0-11.0) K/uL RBC 4.66 (4.50-5.90) M/uL Hgb 13.2 (13.0-17.0) g/dL Hct 39.2 (38.0-50.0) % MCV 84.1 (80.0-98.0) fL MCH 28.3 (27.0-32.0) pg MCHC 33.7 (31.0-37.0) g/dL RDW Std Deviation 39.6 (28.0-62.0) fl RDW Coeff of Heavenly 13 (11.0-15.0) % Plt Count 280 (150-400) K/uL MPV 9.60 (7.40-12.00) fL Neut % (Auto) 61.3 (48.0-80.0) % Lymph % (Auto) 27.0 (16.0-40.0) % [place] % (Auto) 8.0 (0.0-15.0) % Eos % (Auto) 3.4 (0.0-7.0) % Baso % (Auto) 0.3 (0.0-1.5) % Neut # (Auto) 3.8 (1.4-5.7) K/uL Lymph # (Auto) 1.7 (0.6-2.4) K/uL [place] # (Auto) 0.5 (0.0-0.8) K/uL Eos # (Auto) 0.2 (0.0-0.7) K/uL Baso # (Auto) 0.0 (0.0-0.1) K/uL Nucleated RBC % 0.0 /100WBC Nucleated RBCs # 0 K/uL Sodium 143 (136-148) mmol/L Potassium 4.4 (3.5-5.1) mmol/L Chloride 110 H (98-107) mmol/L Carbon Dioxide 30.7 (21.0-32.0) mmol/L BUN 5 L (7.0-18.0) mg/dL Creatinine 0.9 (0.8-1.3) mg/dL Est Cr Clr Drug Dosing 95.05 mL/min Estimated GFR (MDRD) > 60.0 ml/min Glucose 105 (74-106) mg/dL Calcium 8.6 (8.5-10.1) mg/dL Phosphorus 3.6 (2.6-4.7) mg/dL Magnesium 2.1 H (1.5-2.0) mg/dL Total Bilirubin 0.3 (0.2-1.0) mg/dL AST 15 (15-37) IU/L ALT 33 (14-63) IU/L Alkaline Phosphatase 96 (46-116) U/L Total Protein 6.4 (6.4-8.2) g/dL Albumin 2.7 L (3.4-5.0) g/dL Globulin 3.7 H (2.0-3.5) g/dL Albumin/Globulin Ratio 0.7 L (1.3-2.8) Tray Results Last 24 Hours: Microbiology 11/05/17 02:20 Urine Culture - Final Urine, Clean Catch MIXED CHELE 1,000-10,000 CFU/ML Med Orders - Current: Current Medications Enoxaparin Sodium (Lovenox) 40 mg SUBCUT Q24H [facility] Last Admin: 11/05/17 13:16 Dose: 40 mg Sodium Chloride (Normal Saline) 1,000 mls @ 125 mls/hr IV STAT [facility] Last Admin: 11/05/17 05:18 Dose: 125 mls/hr Lactated Ringer's (Ringers, Lactated) 1,000 mls @ 125 mls/hr IV ASDIRECTED [facility] Last Admin: 11/06/17 02:15 Dose: 125 mls/hr Metronidazole 500 mg/ Premix 100 mls @ 100 mls/hr IV QID [facility] Last Admin: 11/06/17 06:02 Dose: 100 mls/hr Ciprofloxacin/Dextrose 400 mg/ (Premix) 200 mls @ 200 mls/hr IV Q12H [facility] Last Admin: 11/05/17 22:05 Dose: 200 mls/hr Metoclopramide HCl (Reglan) 10 mg IVPUSH Q4H PRN PRN Reason: n and vomiting Morphine Sulfate (Morphine) 2 mg IVPUSH Q2H PRN PRN Reason: Pain (severe 7-10) Stop: 11/06/17 12:22 Ondansetron HCl (Zofran) 4 mg IVPUSH Q4H PRN PRN Reason: Nausea Oxycodone/Acetaminophen (Percocet 325-5 Mg) 1 tab PO Q6H PRN PRN Reason: Pain Pantoprazole Sodium (Protonix Iv) 40 mg IVPUSH DAILY [facility] Sodium Chloride (Saline Flush) 10 ml FLUSH ASDIRECTED PRN PRN Reason: Keep Vein Open Sodium Chloride (Saline Flush) 2.5 ml FLUSH ASDIRECTED PRN PRN Reason: Keep Vein Open Discontinued Medications Acetaminophen (Tylenol) 650 mg PO NOW ONE Stop: 11/05/17 14:25 Last Admin: 11/05/17 14:53 Dose: 650 mg Acetaminophen (Tylenol) 650 mg PO NOW ONE Stop: 11/06/17 05:11 Last Admin: 11/06/17 05:59 Dose: 650 mg Aspirin (Aspirin) 325 mg PO ONETIME ONE Stop: 11/05/17 14:13 Last Admin: 11/05/17 14:53 Dose: 325 mg Aspirin (Aspirin) 325 mg PO ONETIME ONE Stop: 11/06/17 05:08 Last Admin: 11/06/17 05:58 Dose: 325 mg Caffeine Citrated (Cafcit) 60 mg PO ONETIME ONE Stop: 11/05/17 14:31 Last Admin: 11/05/17 14:54 Dose: 60 mg Caffeine Citrated (Cafcit) 60 mg PO ONETIME ONE Stop: 11/06/17 05:10 Last Admin: 11/06/17 06:00 Dose: 60 mg Hydromorphone HCl (Dilaudid) 2 mg IVPUSH ONETIME ONE Stop: 11/05/17 14:12 Last Admin: 11/05/17 17:26 Dose: Not Given Sodium Chloride (Normal Saline) 1,000 mls @ 999 mls/hr IV STAT ONE Stop: 11/05/17 03:17 Last Admin: 11/05/17 02:55 Dose: 999 mls/hr Metronidazole 500 mg/ Premix 100 mls @ 100 mls/hr IV ONETIME ONE Stop: 11/05/17 05:10 Last Admin: 11/05/17 04:14 Dose: 100 mls/hr Ciprofloxacin/Dextrose 400 mg/ (Premix) 200 mls @ 200 mls/hr IV NOW STA Stop: 11/05/17 05:57 Last Admin: 11/05/17 05:18 Dose: 200 mls/hr Ketorolac Tromethamine (Toradol) 30 mg IVPUSH ONETIME ONE Stop: 11/05/17 02:18 Last Admin: 11/05/17 02:56 Dose: 30 mg Lorazepam (Ativan) 2 mg IVPUSH Q4H ONE Stop: 11/05/17 13:58 Last Admin: 11/05/17 17:38 Dose: Not Given Metoclopramide HCl (Reglan) 10 mg IV ONETIME ONE Stop: 11/05/17 04:03 Last Admin: 11/05/17 04:09 Dose: 10 mg Ondansetron HCl (Zofran) 8 mg IVPUSH ONETIME ONE Stop: 11/05/17 02:18 Last Admin: 11/05/17 02:56 Dose: 8 mg Sumatriptan Succinate (Imitrex) 50 mg PO ONETIME ONE Stop: 11/05/17 09:43 Last Admin: 11/05/17 09:55 Dose: 50 mg - Exam General: Alert, Oriented, Cooperative, No Acute Distress HEENT: Pupils Equal, Pupils Reactive, EOMI, Mucous Membr. Moist/[place] Neck: Supple Lungs: Clear to Auscultation, Normal Respiratory Effort Cardiovascular: Regular Rate, Regular Rhythm GI/Abdominal Exam: Normal Bowel Sounds, Soft, Non-Tender, No Organomegaly, No Distention, No Mass. No: Guarding, Rigid, Rebound (Male) Exam: No Hernia Back Exam: Normal Inspection, Full Range of Motion Extremities: Normal Inspection, Normal Range of Motion, Non-Tender, No Pedal Edema, Normal Capillary Refill Skin: Warm, Dry, Intact Neurological: No New Focal Deficit Psy/Mental Status: Alert, Normal Affect, Normal Mood Consult PN Assessment/Plan (1) Diverticulitis large intestine SNOMED Code(s): 4200791 Code(s): K57.32 - DVTRCLI OF LG INT W/O PERFORATION OR ABSCESS W/O BLEEDING Priority: High Current Visit: Yes Qualifiers: Diverticulitis bleeding: without bleeding Problem List Initiated/Reviewed/Updated: Yes Plan: Patient is feeling much better this morning-feels at least "80%" better and rates pain a "0". Examination is entirely benign this morning. He has tolerated clear liquids. WBC is again normal. RECOMMENDATIONS: Patient can be started on a regular diet with no nuts, seeds or berries. He could be discharged today if hospitalist agrees. He should complete a full 10 day course of antibiotics and I told him he should have a colonoscopy later this year.
[2017-11-06] MEDS ORDERED: Pantoprazole 40 MG Vial IVPUSH SCH (09:00)
[2017-11-06] MEDS: Ciprofloxacin in D5W 400 MG in Premix Bag 1 BAG IV SCH ×2 (09:53)
--- NOTE | 2017-11-06 12:28 | PCM.DCSUM1 ---
Discharge Summary - Discharge Data Discharge Disposition: Home, Self-Care 01 Condition: Stable - Discharge Diagnosis/Problem(s) (1) Diverticulitis SNOMED Code(s): 629311818 ICD Code: K57.92 - DVTRCLI OF INTEST, PART UNSP, W/O PERF OR ABSCESS W/O BLEED Status: Acute Current Visit: Yes (2) Migraine headache without aura SNOMED Code(s): 92697845 ICD Code: G43.009 - MIGRAINE W/O AURA, NOT INTRACTABLE, W/O STATUS MIGRAINOSUS Status: Acute Current Visit: Yes Qualifiers: Intractability: not intractable - Patient Summary/Data Consults: Consultations 11/05/17 06:41 Consult to Physician [CONS] Stat - Patient Instructions Diet: Usual Diet as Tolerated Activity: As Tolerated Driving: May Drive Today Showering/Bathing: May Shower Notify Provider of: Fever - Discharge Plan Prescriptions/Med Rec: Ciprofloxacin [Cipro] 500 mg PO BID #24 ml metroNIDAZOLE [Flagyl] 500 mg PO TID 12 Days #36 tablet Home Medications: Home Meds Ciprofloxacin [Cipro] 500 mg PO BID #24 ml 11/06/17 [Rx] metroNIDAZOLE [Flagyl] 500 mg PO TID 12 Days #36 tablet 11/06/17 [Rx] Forms: ED Department Discharge Referrals: Serjio Murray MD [Physician] - PCP,None [Primary Care Provider] - - Patient Data Vitals - Most Recent: Last Vital Signs Temp 98.0 F 11/06/17 12:00 Pulse 69 11/06/17 12:00 Resp 20 11/06/17 12:00 BP 111/54 L 11/06/17 12:00 Pulse Ox 99 11/06/17 12:00 Weight - Most Recent: 131 lb 13.383 oz I&O - Last 24 hours: Intake & Output 11/05/17 11/06/17 11/06/17 22:59 06:59 14:59 Intake Total 1999 Output Total 550 Balance 1449 Lab Results - Last 24 hrs: Laboratory Results - last 24 hr 11/06/17 11/06/17 Range/Units 05:56 05:56 WBC 6.23 (4.0-11.0) K/uL RBC 4.66 (4.50-5.90) M/uL Hgb 13.2 (13.0-17.0) g/dL Hct 39.2 (38.0-50.0) % MCV 84.1 (80.0-98.0) fL MCH 28.3 (27.0-32.0) pg MCHC 33.7 (31.0-37.0) g/dL RDW Std Deviation 39.6 (28.0-62.0) fl RDW Coeff of Heavenly 13 (11.0-15.0) % Plt Count 280 (150-400) K/uL MPV 9.60 (7.40-12.00) fL Neut % (Auto) 61.3 (48.0-80.0) % Lymph % (Auto) 27.0 (16.0-40.0) % [place] % (Auto) 8.0 (0.0-15.0) % Eos % (Auto) 3.4 (0.0-7.0) % Baso % (Auto) 0.3 (0.0-1.5) % Neut # (Auto) 3.8 (1.4-5.7) K/uL Lymph # (Auto) 1.7 (0.6-2.4) K/uL [place] # (Auto) 0.5 (0.0-0.8) K/uL Eos # (Auto) 0.2 (0.0-0.7) K/uL Baso # (Auto) 0.0 (0.0-0.1) K/uL Nucleated RBC % 0.0 /100WBC Nucleated RBCs # 0 K/uL Sodium 143 (136-148) mmol/L Potassium 4.4 (3.5-5.1) mmol/L Chloride 110 H (98-107) mmol/L Carbon Dioxide 30.7 (21.0-32.0) mmol/L BUN 5 L (7.0-18.0) mg/dL Creatinine 0.9 (0.8-1.3) mg/dL Est Cr Clr Drug Dosing 95.05 mL/min Estimated GFR (MDRD) > 60.0 ml/min Glucose 105 (74-106) mg/dL Calcium 8.6 (8.5-10.1) mg/dL Phosphorus 3.6 (2.6-4.7) mg/dL Magnesium 2.1 H (1.5-2.0) mg/dL Total Bilirubin 0.3 (0.2-1.0) mg/dL AST 15 (15-37) IU/L ALT 33 (14-63) IU/L Alkaline Phosphatase 96 (46-116) U/L Total Protein 6.4 (6.4-8.2) g/dL Albumin 2.7 L (3.4-5.0) g/dL Globulin 3.7 H (2.0-3.5) g/dL Albumin/Globulin Ratio 0.7 L (1.3-2.8) KIMEBRLEE Results - Last 24 hrs: Microbiology 11/05/17 02:20 Urine Culture - Final Urine, Clean Catch MIXED CHELE 1,000-10,000 CFU/ML Med Orders - Current: Current Medications Enoxaparin Sodium (Lovenox) 40 mg SUBCUT Q24H [facility] Last Admin: 11/05/17 13:16 Dose: 40 mg Sodium Chloride (Normal Saline) 1,000 mls @ 125 mls/hr IV STAT [facility] Last Admin: 11/05/17 05:18 Dose: 125 mls/hr Lactated Ringer's (Ringers, Lactated) 1,000 mls @ 125 mls/hr IV ASDIRECTED [facility] Last Admin: 11/06/17 02:15 Dose: 125 mls/hr Metronidazole 500 mg/ Premix 100 mls @ 100 mls/hr IV QID [facility] Last Admin: 11/06/17 06:02 Dose: 100 mls/hr Ciprofloxacin/Dextrose 400 mg/ (Premix) 200 mls @ 200 mls/hr IV Q12H [facility] Last Admin: 11/06/17 09:53 Dose: 200 mls/hr Metoclopramide HCl (Reglan) 10 mg IVPUSH Q4H PRN PRN Reason: n and vomiting Ondansetron HCl (Zofran) 4 mg IVPUSH Q4H PRN PRN Reason: Nausea Oxycodone/Acetaminophen (Percocet 325-5 Mg) 1 tab PO Q6H PRN PRN Reason: Pain Pantoprazole Sodium (Protonix Iv) 40 mg IVPUSH DAILY [facility] Last Admin: 11/06/17 09:53 Dose: 40 mg Sodium Chloride (Saline Flush) 10 ml FLUSH ASDIRECTED PRN PRN Reason: Keep Vein Open Sodium Chloride (Saline Flush) 2.5 ml FLUSH ASDIRECTED PRN PRN Reason: Keep Vein Open Discontinued Medications Acetaminophen (Tylenol) 650 mg PO NOW ONE Stop: 11/05/17 14:25 Last Admin: 11/05/17 14:53 Dose: 650 mg Acetaminophen (Tylenol) 650 mg PO NOW ONE Stop: 11/06/17 05:11 Last Admin: 11/06/17 05:59 Dose: 650 mg Aspirin (Aspirin) 325 mg PO ONETIME ONE Stop: 11/05/17 14:13 Last Admin: 11/05/17 14:53 Dose: 325 mg Aspirin (Aspirin) 325 mg PO ONETIME ONE Stop: 11/06/17 05:08 Last Admin: 11/06/17 05:58 Dose: 325 mg Caffeine Citrated (Cafcit) 60 mg PO ONETIME ONE Stop: 11/05/17 14:31 Last Admin: 11/05/17 14:54 Dose: 60 mg Caffeine Citrated (Cafcit) 60 mg PO ONETIME ONE Stop: 11/06/17 05:10 Last Admin: 11/06/17 06:00 Dose: 60 mg Hydromorphone HCl (Dilaudid) 2 mg IVPUSH ONETIME ONE Stop: 11/05/17 14:12 Last Admin: 11/05/17 17:26 Dose: Not Given Sodium Chloride (Normal Saline) 1,000 mls @ 999 mls/hr IV STAT ONE Stop: 11/05/17 03:17 Last Admin: 11/05/17 02:55 Dose: 999 mls/hr Metronidazole 500 mg/ Premix 100 mls @ 100 mls/hr IV ONETIME ONE Stop: 11/05/17 05:10 Last Admin: 11/05/17 04:14 Dose: 100 mls/hr Ciprofloxacin/Dextrose 400 mg/ (Premix) 200 mls @ 200 mls/hr IV NOW STA Stop: 11/05/17 05:57 Last Admin: 11/05/17 05:18 Dose: 200 mls/hr Ketorolac Tromethamine (Toradol) 30 mg IVPUSH ONETIME ONE Stop: 11/05/17 02:18 Last Admin: 11/05/17 02:56 Dose: 30 mg Lorazepam (Ativan) 2 mg IVPUSH Q4H ONE Stop: 11/05/17 13:58 Last Admin: 11/05/17 17:38 Dose: Not Given Metoclopramide HCl (Reglan) 10 mg IV ONETIME ONE Stop: 11/05/17 04:03 Last Admin: 11/05/17 04:09 Dose: 10 mg Morphine Sulfate (Morphine) 2 mg IVPUSH Q2H PRN PRN Reason: Pain (severe 7-10) Stop: 11/06/17 12:22 Ondansetron HCl (Zofran) 8 mg IVPUSH ONETIME ONE Stop: 11/05/17 02:18 Last Admin: 11/05/17 02:56 Dose: 8 mg Sumatriptan Succinate (Imitrex) 50 mg PO ONETIME ONE Stop: 11/05/17 09:43 Last Admin: 11/05/17 09:55 Dose: 50 mg
[2017-11-06] MEDS: Enoxaparin 40 MG/0.4 ML Syringe SUBCUT SCH (12:32)
--- NOTE | 2017-11-07 10:18 | CT ---
EXAM DATE: 11/05/17 PATIENT'S AGE: 37 Patient: DES MCKENZIE Facility: [place], [place] Site . Site : 1980 Study: CT Abdomen/Pelvis W/O [id number]/19/2018 3:49:18 AM Ordering Physician: Cindy Thao Final Report: INDICATION: General abdominal pain TECHNIQUE: CT Abdomen and pelvis without i.v. contrast. Coronal and sagittal reformats were obtained. CONTRAST: None COMPARISON: None FINDINGS: Lower chest: Unremarkable. Liver: Unremarkable. Spleen: Unremarkable. Pancreas: Unremarkable. Gallbladder: Previous cholecystectomy noted without significant intra- or extrahepatic biliary ductal dilatation seen. Kidney: Unremarkable. No kidney or ureteral stones or obstruction seen. Adrenal: Unremarkable. Bowel: Mild to moderate wall thickening is present in the sigmoid with surrounding inflammatory changes and severe diverticulosis. On coronal images, there is a fluid density structure seen along the inferior margin of the inflamed segment of sigmoid colon measuring 2 x 1 cm. The appendix is normal in appearance and size. Vascular: Unremarkable. Lymph: Unremarkable. Peritoneum: Unremarkable. No pneumoperitoneum is seen. No significant ascites is noted. Pelvis: Unremarkable. Soft tissue: Unremarkable. Bone: Unremarkable for age. IMPRESSIONS: 1. Mild to moderate wall thickening is present in the sigmoid with surrounding inflammatory changes and severe diverticulosis. Findings most likely due to acute diverticulitis. 2. On coronal images, there is a fluid density structure seen along the inferior margin of the inflamed segment of sigmoid colon measuring 2 x 1 cm. This is likely due to a small peridiverticular abscess. Dictated by Romario Mas MD @ 11/05/2017 4:06:12 AM Please note that all CT scans at this facility use dose modulation, iterative reconstruction, and/or weight-based dosing when appropriate to reduce radiation dose to as low as reasonably achievable. Dictated by: Romario Mas MD @ 11/05/2017 04:06:19 (Electronic Signature) Report Signed by Proxy. [facility]
== END 2017-11-06 14:15 | disposition home or self-care (01) | DRG 392 ==
LOC: MW.ED 02:12 → MW.MS 10:14 → MW.ED 10:56
PROVIDERS: ADMIT Internal Medicine; ATTEND Internal Medicine
DX: K57.92 Diverticulitis of intestine, part unspecified, without perforation or abscess without bleeding (principal); G43.009 Migraine without aura, not intractable, without status migrainosus; Z87.891 Personal history of nicotine dependence
CPT/HCPCS: 36415; 74176; 74176-26; 80053; 81001; 83690; 83735; 84100; 85025; 87086; 96361; 96365; 96367; 96375; 99283; 99285-25; A9270-GY; C9113; J0706; J0744; J1650; J1885; J2405; J2765; J7040; J7120